=== PATIENT | male | born 1985 | race African-American/Black ===

== ENCOUNTER 2023-10-03 16:32 | Emergency (ER) | payer SELFPAY ==
[~2023-10-03] VITALS: Ht 180.3 cm; Wt 109.0 kg
[2023-10-03 16:39] VITALS: TEMP 98.4; O2SAT 98
[2023-10-03 17:00] LABS: HEMOGLOBIN. 17.3 g/dL (14.0-18.0); MEAN CORPUSCULAR HEMOGLOBIN 32.5 pg (28.0-32.0); MEAN CORPUSCULAR HGB CONC 33.9 g/dL (31.0-37.0); MEAN PLATELET VOLUME 8.2 fl (7.4-10.4); PLATELET 280 x1000/uL (130-400); RED BLOOD CELL COUNT 5.31 mill/uL (4.7-6.1); RED CELL DISTRIBUTION WIDTH 14.2 % (11.6-14.6); WHITE BLOOD COUNT 10.4 x1000/uL (4.5-11.0)
[2023-10-03 17:04] LABS: DIFFERENTIAL COMMENT 1
[2023-10-03 17:06] LABS: CHLORIDE 106 mEq/L (98-107); POTASSIUM 4.8 mEq/L (3.5-5.1); SODIUM 134 mEq/L (136-145)
[2023-10-03 17:07] LABS: CALCIUM 10.1 mg/dL (8.7-10.4); CARBON DIOXIDE 19 mEq/L (21-32)
[2023-10-03 17:12] LABS: CREATININE 1.4 mg/dL (0.6-1.3); GLUCOSE 112 mg/dL (70-105); UREA NITROGEN BLOOD 11 mg/dL (9-23)
[2023-10-03 17:14] LABS: ALANINE AMINOTRANSFERASE 77 IU/L (10-49); ALBUMIN 5.4 g/dL (3.2-4.8); ASPARTATE AMINOTRANSFERASE 48 IU/L (<34); BILIRUBIN DIRECT 0.4 mg/dL (<=3.0); BILIRUBIN TOTAL 1.1 mg/dL (0.1-1.0); PROTEIN TOTAL 8.8 g/dL (6.0-8.3)
[2023-10-03 17:30] VITALS: BP 127/73; PULSE 100; RESP 18
[2023-10-03] MEDS: IBUPROFEN 400MG TABLET PO ONE (17:30)
[2023-10-03] MEDS: ONDANSETRON 4MG ODT PO ONE (17:30)
[2023-10-03 18:22] LABS: PLATELET ESTIMATE NORMAL
== END 2023-10-03 19:41 | disposition home or self-care (01) ==
LOC: ER 16:32
DX: R11.2 Nausea with vomiting, unspecified (principal); R19.7 Diarrhea, unspecified; Z20.822 Contact with and (suspected) exposure to COVID-19
CPT/HCPCS: 99283; 87426; 80076; 80048; 83690; 85025; 36415; Q0162